=== PATIENT | female | born 1975 | race Caucasian/White ===

== ENCOUNTER → 2016-04-19 | Outpatient (CLI) | payer MEDICAID ==
[~2016-04-19] MED LIST: ADVIL200 MG PO; BENADRYL25 MG PO; FEOSOL325 MG PO; LEVAQUIN500 MG PO
--- NOTE | ~2016-04-19 | PUL ---
PATIENT'S NAME: RENATA NOBLE [facility] AGE: 40 Y [address] ROOM: [place] [address] LOCATION: [facility] ADMIT DATE: 04/19/2016 Pulmonary DISCHARGE DATE: FAMILY PHYSICIAN: SHOLA HIDALGO MD ATTENDING PHYSICIAN: SHOLA HIDALGO NAME OF PROCEDURE: Sleep study DATE OF PROCEDURE: 04/19/16 TECH: ERUM Ramey [place] [facility] [id number] MEDICAL HISTORY: The patient is a 40 year-old overweight woman with a history of persistent difficulty maintaining wakefulness. This study was done to titrate CPAP for previously identified obstructive sleep apnea. SLEEP STAGE SUMMARY: Sleep architecture revealed a decline in slow wave and REM sleep. RESPIRATORY SUMMARY: CPAP was initiated at 4 cm and titrated to 12 cm with excellent control of the respiratory events. EKG SUMMARY: Average heart rate 63 beats per minute. No dysrhythmias were noted. LIMB MOVEMENT SUMMARY: No clinically relevant periodic limb movements were noted. SUMMARY: Obstructive sleep apnea responsive to CPAP at 12 cm. PLAN: Suggest CPAP at 12 cm. Patient will receive results from the ordering provider. KEIRA SMITH MD [facility]/ /[id number] dtt: 05/08/16 1252 , Keira Smith dtd: 04/22/16 1545
== END | disposition disaster alternative care site (69) ==
LOC: GSLP 20:33
DX: G47.33 Obstructive sleep apnea (adult) (pediatric) (principal)

== ENCOUNTER → 2016-06-22 | Outpatient (CLI) | payer MEDICAID | END | disposition disaster alternative care site (69) | LOC: GBCOE 11:12 | DX: Z12.31 Encounter for screening mammogram for malignant neoplasm of breast (principal); R92.8 Other abnormal and inconclusive findings on diagnostic imaging of breast | CPT/HCPCS: G0202 ==

== ENCOUNTER → 2016-06-30 | Outpatient (CLI) | payer MEDICAID | END | disposition disaster alternative care site (69) | LOC: GBCOE 12:54 | DX: N63 Unspecified lump in breast (principal) | CPT/HCPCS: G0206 ==

== ENCOUNTER 2016-08-04 10:56 | Emergency (ER) | payer MEDICAID ==
--- NOTE | ~2016-08-04 | ER ---
[facility] 40 [facility] [address] ROOM: [place] [address] LOCATION: [facility] ADMIT DATE: 08/04/2016 ER/Outpatient Report DISCHARGE DATE: 08/04/2016 FAMILY PHYSICIAN: Georgina Egan MD ATTENDING PHYSICIAN: Annie Ibarra Time of Arrival: 1056 hours. Time of Evaluation: 1136 hours. IDENTIFICATION: A 40-year-old female. CHIEF COMPLAINT: Left knee and foot injury. HISTORY OF PRESENT ILLNESS: The patient is a 40-year-old female, who stumbled while walking, fell forward, did land on her left knee but injured her left third toe. She also hit her right elbow. She did not hit her head. No loss of consciousness. No increase in her usual back pain. No numbness or tingling. ALLERGIES: TO CEFTIN. CURRENT MEDICATIONS: 1. Levothyroxine. 2. Focalin. 3. Effexor. 4. Calcium. 5. Multivitamin. 6. Topiramate. 7. Zyrtec. 8. Stool softener. 9. Ibuprofen. MEDICAL PROBLEMS: Depression, anxiety, ADHD, anemia, morbid obesity, and hypothyroidism. PRIOR SURGERIES: Gastric bypass surgery in 2003, hernia repair, , and bowel resection. SOCIAL HISTORY: The patient is . Tobacco use, denies. Alcohol use, socially. Drug use, denies. PATIENT'S NAME: RENATA NOBLE [facility] AGE: 40 Y [address] ROOM: [place] [address] LOCATION: [facility] ADMIT DATE: 08/04/2016 ER/Outpatient Report DISCHARGE DATE: 08/04/2016 FAMILY PHYSICIAN: Georgina Egan MD ATTENDING PHYSICIAN: Annie Ibarra REVIEW OF SYSTEMS: All systems reviewed and negative other than what is noted in the HPI. FAMILY HISTORY: Positive for grandfather with Alzheimer's disease. Mother with heart disease and congestive heart failure. Father with dementia and diabetes mellitus. Both parents with CA. PHYSICAL EXAMINATION: VITAL SIGNS: Height 5 feet 5-1/2 inches, weight 35.5 kg, blood pressure 141/66, pulse 62, respirations 14, temperature 99.2, and saturations 98% on room air. GENERAL: A 40-year-old female, in obvious distress. HEENT: Head: Normocephalic, atraumatic. Ears: TMs translucent both ears. Eyes: Pupils equal and reactive to light and accommodation. Extraocular movements intact. Nose: Mucosa pink. No lesions. Mouth: No lesions. Pharynx benign. NECK: Supple. No lymphadenopathy. No nuchal rigidity. No tenderness to palpation. LUNGS: Clear to auscultation. HEART: Regular rate and rhythm. ABDOMEN: Soft, nondistended. SKIN: [place], warm, and dry. No lesions or rashes noted. NEURO: The patient is alert and oriented x4. Cranial nerves 2 through 12 grossly intact. Motor strength 5/5 throughout. Sensation is intact to light touch. She has a small abrasion on her right elbow, but full range of motion her right elbow with no bony tenderness. Left upper extremity: Full range of motion, no bony tenderness, no tenderness to pelvic rock. Right lower extremity: Full range of motion, no deformities noted, good distal pulses. Left lower extremity: Good distal pulses, sensation intact. The patient has an area of bruising noted to the left side of anterior knee. No ligamentous laxity. She has bruising and swelling noted over her proximal phalanx third toe on her foot. She has no tenderness to palpation of her foot, although she said it hurts in her toe when she puts her heel down. LABORATORY DATA AND X-RAYS: X-ray of her left foot reveals a fracture at the proximal phalanx, at the PIP joint, nondisplaced, and no dislocation. Left knee, no definite fracture but questionable lateral tibial plateau fracture. Pending Radiology over-read. Right elbow negative for fracture or dislocation. Left knee CT scan, moderate degenerative changes. Mild patellofemoral and lateral compartment DJD. No fracture. IMPRESSION AND PLAN: 1. Right elbow abrasion. Plan wound care. 2. Left knee contusion. No evidence of fracture per CT scan. PATIENT'S NAME: RENATA NOBLE [facility] AGE: 40 Y [address] ROOM: [place] [address] LOCATION: [facility] ADMIT DATE: 08/04/2016 ER/Outpatient Report DISCHARGE DATE: 08/04/2016 FAMILY PHYSICIAN: Georgina Egan MD ATTENDING PHYSICIAN: Annie Ibarra 3. Left third toe nondisplaced fracture. Devin left knee for comfort. Ice and elevate. Tylenol or Advil for pain. Orange for severe pain. She was given 2 Orange here in the emergency room. She was given a prescription for 5/325 one to two p.o. q.4-6 hours p.r.n. pain, dispensed 15. Walker and ambulate, bear weight as tolerates with a cast shoe. Postop shoe on her left foot. Follow up at [facility] in 2 to 7 days. Follow up sooner if any problems or concerns. The patient understands and agrees, and all questions have been answered. ANNIE IBARRA MD CAR/modl /[id number] d: 08/04/16 2254 t: 08/05/162054, OUTPATIENT REPORT
== END 2016-08-04 15:08 | disposition disaster alternative care site (69) ==
LOC: GACC 10:56
DX: S92.505A Nondisplaced unspecified fracture of left lesser toe(s), initial encounter for closed fracture (principal); S80.02XA Contusion of left knee, initial encounter; S50.311A Abrasion of right elbow, initial encounter; F32.9 Major depressive disorder, single episode, unspecified; F41.9 Anxiety disorder, unspecified; D64.9 Anemia, unspecified; E66.01 Morbid (severe) obesity due to excess calories; E03.9 Hypothyroidism, unspecified; Z79.1 Long term (current) use of non-steroidal anti-inflammatories (NSAID); Z79.899 Other long term (current) drug therapy; Z88.1 Allergy status to other antibiotic agents; Z90.79 Acquired absence of other genital organ(s); Z98.890 Other specified postprocedural states; W01.0XXA Fall on same level from slipping, tripping and stumbling without subsequent striking against object, initial encounter; Y93.01 Activity, walking, marching and hiking